=== PATIENT | male | born 1970 | race African-American/Black ===

== ENCOUNTER 2017-11-10 11:23 | Inpatient (IN) ==
[2017-11-10] MEDS ORDERED: SODIUM CHLORIDE 0.9% 1,000 ML IV STA (12:21)
[2017-11-10 12:34] LABS: Basophils % 0.3 % (0.0-0.8); Eosinophils # 0.1 10*3/uL (0.0-0.87); Eosinophils % 1.8 % (0.00-10.9); Immature Granulocytes Absolute 0.04 #; Lymphocytes # 1.2 10*3/uL (1.4-4.0); Lymphocytes % 31.2 % (21.2-54.2); Mean Corpuscular HGB Conc 32.2 GM/DL (32-36); Mean Corpuscular Hemoglobin 28 PG (27-34); Mean Corpuscular Volume 87.2 FL (87-102); Mean Platelet Volume 13.5 FL (9.6-12.0); Monocytes # 0.1 10*3/uL (0.11-0.8); Monocytes % 3.3 % (1.7-12.7); Neutrophils # 2.4 10*3/uL (1.4-7.4); Neutrophils % 62.4 % (38.7-73.9); Platelet Count 201 T/CUMM (130-400); Red Blood Count 1.64 MC/CUMM (3.8-5.5); Red Cell Distribution Width 18.5 % (9.3-17.3); White Blood Count 3.9 T/CUMM (4-12)
[2017-11-10 12:44] LABS: INR 1.3; PT Patient Result 13.2 SECS
[2017-11-10 12:49] LABS: Hematocrit 14.3 VOL% (42.0-52.0); Hemoglobin 4.6 GM/DL (14.0-18.0)
[2017-11-10 12:50] LABS: Bilirubin,Total 0.7 MG/DL (0.2-1.0); Calcium 8.4 MG/DL (8.5-10.1); Osmolality,Calculated 283.4 MOS/KG (273-304); Potassium 4.3 MMOL/L (3.5-5.1); Total Protein 5.7 G/DL (6.4-8.3)
[2017-11-10] MEDS ORDERED: FUROSEMIDE 20 MG/2 ML VIAL IV PRN (14:37)
[2017-11-10] MEDS ORDERED: ACETAMINOPHEN 325 MG TABLET PO PRN (14:37)
[2017-11-10] MEDS ORDERED: diphenhydrAMINE 50 MG/1 ML VIAL IV PRN (14:37)
[2017-11-10] MEDS ORDERED: SODIUM CHLORIDE 0.9% 1,000 ML IV PRN (14:37)
[2017-11-10] MEDS ORDERED: DEXTROSE 50% 25 GM/50 ML VIAL IV PRN (14:43)
[2017-11-10] MEDS ORDERED: GLUCAGON 1 MG VIAL IM PRN (14:43)
[2017-11-10] MEDS ORDERED: hydrALAZINE 20 MG/1 ML VIAL IV PRN (15:57)
[2017-11-10 18:01] LABS: Apearance,Urine CLEAR (Clear); Bilirubin,Urine Negative (Negative); Blood, Urine Negative (Negative); Glucose,Urine (UA) Negative (Negative); Ketones,Urine Negative (Negative); Nitrite,Urine Negative (Negative); Protein,Urine 100 MG/DL; RBC,Urine <1 /HPF (0-4); Squamous Epithelial Cell,Urine Occasional /HPF (0-10); Urine Color Yellow (Yellow); WBC,Urine 1 /HPF (0-6)
[2017-11-10 18:18] LABS: Barbiturates Screen,Urine Negative (Negative); Benzodiazepines Screen,Urine Negative (Negative); Cannabinoid Screen,Urine Positive (Negative); Opiate Screen,Urine Positive (Negative); Phencyclidine Screen,Urine Negative (Negative)
[2017-11-10 18:21] LABS: Hemoglobin 5.1 GM/DL (14.0-18.0)
[2017-11-10 18:22] LABS: Hematocrit 15.8 VOL% (42.0-52.0)
[2017-11-10] MEDS: MORPHINE 4 MG/1 ML VIAL IV PRN (18:30)
[2017-11-10] MEDS: ONDANSETRON 4 MG/2 ML VIAL IV PRN (19:19)
[2017-11-10] MEDS: SODIUM CHLORIDE 0.9% 1,000 ML IV SCH (19:22)
[2017-11-10] MEDS: INSULIN REGULAR 100 UNIT/ML SUBCUT SCH (19:54)
[2017-11-10 20:59] LABS: Hematocrit 12.5 VOL% (42.0-52.0); Hemoglobin 4.1 GM/DL (14.0-18.0)
[2017-11-11] MEDS: INSULIN REGULAR 100 UNIT/ML SUBCUT SCH ×4 (01:31→19:01)
[2017-11-11 08:38] LABS: Basophils % 0.5 % (0.0-0.8); Eosinophils % 0.8 % (0.00-10.9); Hematocrit 23.6 VOL% (42.0-52.0); Hemoglobin 7.9 GM/DL (14.0-18.0); Immature Granulocytes Absolute 0.04 #; Lymphocytes # 1.3 10*3/uL (1.4-4.0); Lymphocytes % 33.9 % (21.2-54.2); Mean Corpuscular HGB Conc 33.5 GM/DL (32-36); Mean Corpuscular Hemoglobin 29 PG (27-34); Mean Corpuscular Volume 86.8 FL (87-102); Mean Platelet Volume 13.2 FL (9.6-12.0); Monocytes # 0.2 10*3/uL (0.11-0.8); Monocytes % 5.7 % (1.7-12.7); NRBC # 0.03 10*3/uL; Neutrophils # 2.3 10*3/uL (1.4-7.4); Neutrophils % 58.1 % (38.7-73.9); Platelet Count 123 T/CUMM (130-400); Red Blood Count 2.72 MC/CUMM (3.8-5.5); Red Cell Distribution Width 16.1 % (9.3-17.3); White Blood Count 3.9 T/CUMM (4-12)
[2017-11-11] MEDS ORDERED: PROPOFOL 200 MG/20 ML VIAL IV ONE (09:15)
[2017-11-11] MEDS ORDERED: LIDOCAINE 100 MG/5 ML SYRINGE ONE (09:15)
[2017-11-11 09:16] LABS: Bilirubin,Total 1.3 MG/DL (0.2-1.0); Calcium 7.9 MG/DL (8.5-10.1); Osmolality,Calculated 278.5 MOS/KG (273-304); Potassium 4.4 MMOL/L (3.5-5.1); Total Protein 5.4 G/DL (6.4-8.3)
[2017-11-11] MEDS ORDERED: ONDANSETRON 4 MG/2 ML VIAL ONE (09:54)
[2017-11-11] MEDS: ONDANSETRON 4 MG/2 ML VIAL IV PRN ×2 (09:57→22:05)
[2017-11-11] MEDS ORDERED: SODIUM CHLORIDE 0.9% 1,000 ML IV PRN (10:20)
[2017-11-11] MEDS: SODIUM CHLORIDE 0.9% 1,000 ML IV SCH ×3 (12:33→22:12)
[2017-11-11] MEDS: MORPHINE 4 MG/1 ML VIAL IV PRN (15:00)
[2017-11-11 15:29] LABS: Hematocrit 22.2 VOL% (42.0-52.0); Hemoglobin 7.5 GM/DL (14.0-18.0)
[2017-11-12] MEDS: INSULIN REGULAR 100 UNIT/ML SUBCUT SCH ×2 (00:58→05:36)
[2017-11-12] MEDS: SODIUM CHLORIDE 0.9% 1,000 ML IV SCH ×2 (00:59→11:06)
[2017-11-12 05:26] LABS: Basophils % 0.3 % (0.0-0.8); Eosinophils % 0.6 % (0.00-10.9); Hematocrit 26.3 VOL% (42.0-52.0); Hemoglobin 8.8 GM/DL (14.0-18.0); Immature Granulocytes Absolute 0.07 #; Lymphocytes # 1.3 10*3/uL (1.4-4.0); Lymphocytes % 19.5 % (21.2-54.2); Mean Corpuscular HGB Conc 33.5 GM/DL (32-36); Mean Corpuscular Hemoglobin 29 PG (27-34); Mean Corpuscular Volume 86.8 FL (87-102); Mean Platelet Volume 13.4 FL (9.6-12.0); Monocytes # 0.4 10*3/uL (0.11-0.8); Monocytes % 6.3 % (1.7-12.7); Neutrophils # 4.9 10*3/uL (1.4-7.4); Neutrophils % 72.3 % (38.7-73.9); Platelet Count 80 T/CUMM (130-400); Red Blood Count 3.03 MC/CUMM (3.8-5.5); Red Cell Distribution Width 15.9 % (9.3-17.3); White Blood Count 6.8 T/CUMM (4-12)
[2017-11-12 05:36] LABS: Albumin 1.7 G/DL (3.4-5.0); Bilirubin,Total 1.3 MG/DL (0.2-1.0); Calcium 8.1 MG/DL (8.5-10.1); Osmolality,Calculated 278.5 MOS/KG (273-304); Potassium 4.5 MMOL/L (3.5-5.1)
[2017-11-12 05:55] LABS: Band Neutrophils 1 % (0-10); Eosinophils 1 % (0-10); Hypochromasia 1+; Lymphocytes 13 % (20-55); Nucleated Red Blood Cells 2 (0-5); Ovalocytes Slight; Platelet Estimate Decreased; Segmented Neutrophils 78 % (50-85); Total Cells Counted 100
[2017-11-12 05:56] LABS: Atypical Lymphocytes Few
[2017-11-12 09:15] VITALS: BP 166/98
[2017-11-12] MEDS: MORPHINE 4 MG/1 ML VIAL IV PRN (09:22)
[2017-11-12] MEDS ORDERED: HEPARIN LOCK FLUSH 500 UNIT/5 ML SYRINGE IV PRN (10:56)
== END 2017-11-12 11:20 | disposition home or self-care (01) | DRG 241 ==
LOC: N.ED 11:23 → N.EDINP 14:36 → N.5E 15:47 → N.4E 19:01

== ENCOUNTER 2017-12-25 07:51 | Inpatient (IN) ==
[2017-12-25] MEDS ORDERED: NOREPINEPHRINE 8 MG in SODIUM CHLORIDE 0.9% 242 ML IV PRN (08:08)
[2017-12-25] MEDS ORDERED: ROCURONIUM 100 MG/10 ML VIAL IV ONE (08:22)
[2017-12-25] MEDS ORDERED: ETOMIDATE 20 MG/10 ML VIAL IV ONE (08:22)
[2017-12-25] MEDS ORDERED: SODIUM CHLORIDE 0.9% 1,000 ML IV STA (08:24)
[2017-12-25 08:52] LABS: Basophils # 0.2 10*3/uL (0.0-0.2); Basophils % 0.5 % (0.0-0.8); Eosinophils # 0.1 10*3/uL (0.0-0.87); Eosinophils % 0.3 % (0.00-10.9); Hematocrit 29.7 VOL% (42.0-52.0); Hemoglobin 8.7 GM/DL (14.0-18.0); Immature Granulocytes % 13.5 %; Immature Granulocytes Absolute 4.19 #; Lymphocytes # 2.6 10*3/uL (1.4-4.0); Lymphocytes % 8.3 % (21.2-54.2); Mean Corpuscular HGB Conc 29.3 GM/DL (32-36); Mean Corpuscular Hemoglobin 28 PG (27-34); Mean Corpuscular Volume 96.7 FL (87-102); Monocytes # 1.4 10*3/uL (0.11-0.8); Monocytes % 4.5 % (1.7-12.7); Neutrophils # 22.6 10*3/uL (1.4-7.4); Neutrophils % 72.9 % (38.7-73.9); Platelet Count 100 T/CUMM (130-400); Red Blood Count 3.07 MC/CUMM (3.8-5.5); Red Cell Distribution Width 19.7 % (9.3-17.3)
[2017-12-25 08:55] LABS: Amorphous Crystals,Urine Occasional /HPF (Few); Apearance,Urine Slightly Hazy (Clear); Bacteria,Urine Occasional /HPF (Few); Blood, Urine Negative (Negative); Glucose,Urine (UA) Negative (Negative); Ketones,Urine Negative (Negative); Mucus,Urine Occasional /LPF (Occasional); Nitrite,Urine Negative (Negative); Protein,Urine 30 MG/DL; Urine Color Amber (Yellow); Urine Specific Gravity 1.014 (1.001-1.035); WBC,Urine 1 /HPF (0-6)
[2017-12-25 08:56] LABS: Bilirubin,Urine Small mg/dL (Negative)
[2017-12-25 09:05] LABS: Albumin 1.3 G/DL (3.4-5.0); Anisocytosis 1+; Band Neutrophils 21 % (0-10); Bilirubin,Total 11.6 MG/DL (0.2-1.0); Calcium 9.6 MG/DL (8.5-10.1); Eosinophils 1 % (0-10); Lymphocytes 7 % (20-55); Platelet Estimate Adequate; Poikilocytosis Slight; Polychromasia Slight; Potassium 5.8 MMOL/L (3.5-5.1); Segmented Neutrophils 69 % (50-85); Total Cells Counted 100; Total Protein 6.2 G/DL (6.4-8.3)
[2017-12-25 09:06] LABS: Basophilic Stippling Slight; Macrocytosis 1+
[2017-12-25] MEDS ORDERED: MORPHINE 4 MG/1 ML VIAL IV PRN (09:58)
[2017-12-25 10:22] VITALS: BP 109/40
[2017-12-25 11:11] LABS: Lactic Acid 18.6 MMOL/L (0.4-2.0)
== END 2017-12-25 12:41 | disposition expired | DRG 133 ==
LOC: EDBD → EDUNIT# → N.ED 07:51 → N.EDINP 09:58 → N.ICU 10:35
PROVIDERS: ADMIT Internal Medicine; ATTEND Internal Medicine